=== PATIENT | female | born 1980 | race Caucasian/White ===

== ENCOUNTER 2016-10-06 21:06 | Emergency (ER) | payer OTHER ==
[~2016-10-06] VITALS: Ht 160 cm; Wt 78.0 kg
[~2016-10-06 21:06] MED LIST: AMOX1TAB61 PO; FAMO-63 PO; ONDA4TAB10 SL; ONDA4TAB7 PO; ONDA8TAB9 PO; OXYC-323 PO; TRAM50TA PO
[2016-10-06 21:13] VITALS: BP 125/86
[2016-10-06] MEDS ORDERED: CLIN150C14 PO (21:40)
--- NOTE | 2016-10-06 21:40 | PHYS DOC ---
Past Medical History Past Medical History: No Pertinent History Additional Past Medical Histor: OVARIAN CYST Past Surgical History: Cholecystectomy, Tonsillectomy, Tubal ligation Additional Past Surgical Histo: D&C Alcohol Use: None Drug Use: None Adult General Chief Complaint Chief Complaint: INSECT BITE [facility] HPI Patient is a 36 year old female presents to the emergency department stating that she was outside at work. When she felt something bite in the leg. Patient states that she did not think much about that at this time. She states when she went home the area. Be slightly red. Today when she woke up the area appear to be a pustular type area with redness noted around it. She states that there is clear drainage coming from the site. She states that the area has a burning type itching sensation. She denies taking anything for pain and discomfort. She has not provided any pain relief. Patient denies any numbness or tingling down to the lower extremity. She denies any fever, chills or any nausea vomiting. Patient does state as the day has progressed the redness has also progressed. The area that appears to have progressed size of a softball. Patient states that her last tetanus immunization was approximately 2 years ago. Review of Systems Review of Systems Constitutional: Denies fever or chills [] Eyes: Denies change in visual acuity, redness, or eye pain [] HENT: Denies nasal congestion or sore throat [] Respiratory: Denies cough or shortness of breath [] Cardiovascular: No additional information not addressed in HPI [] GI: Denies abdominal pain, nausea, vomiting, bloody stools or diarrhea [] : Denies dysuria or hematuria [] Musculoskeletal: Denies back pain or joint pain [] Integument: Denies rash or skin lesions. Redness with a bite in the middle. Neurologic: Denies headache, focal weakness or sensory changes [] Endocrine: Denies polyuria or polydipsia [] Allergies Allergies Allergies Coded Allergies Type Severity Reaction Last Updated Verified Sulfa (Sulfonamide Antibiotics) Allergy Severe THROAT SWELLS SHUT 10/17/15 Yes fentanyl Allergy Intermediate anxiuos 10/17/15 Yes prochlorperazine Allergy Intermediate 10/27/15 Yes prochlorperazine edisylate Allergy Intermediate 10/17/15 Yes shellfish derived Allergy Intermediate 04/30/14 Yes hydromorphone Adverse Reaction Intermediate Nausea and Vomiting 10/23/15 Yes morphine Adverse Reaction Intermediate Nausea 10/23/15 Yes Physical Exam Physical Exam Constitutional: Well developed, well nourished, no acute distress, non-toxic appearance. [] HENT: Normocephalic, atraumatic, bilateral external ears normal, oropharynx moist, no oral exudates, nose normal. [] Eyes: PERRLA, EOMI, conjunctiva normal, no discharge. [] Neck: Normal range of motion, no tenderness, supple, no stridor. [] Cardiovascular:Heart rate regular rhythm, no murmur [] Lungs & Thorax: Bilateral breath sounds clear to auscultation [] Skin: Warm, dry, no erythema, no rash. Patient with a softball sized area that is red warm and tender to touch with the center part with no induration noted the area appears to be very hard. No drainage or discharge noted from the site. Peripheral pulses 2+ cap refill brisk less than 2 seconds. Back: No tenderness Extremities: No tenderness, no cyanosis, no clubbing, ROM intact, no edema. [] Neurologic: Alert and oriented X 3, normal motor function, normal sensory function, no focal deficits noted. [] Psychologic: Affect normal, judgement normal, mood normal. [] Current Patient Data Vital Signs Vital Signs Date Time Temp Pulse Resp B/P (MAP) Pulse Ox O2 Delivery O2 Flow Rate FiO2 10/06/16 21:13 98.4 97 18 125/86 (99) 99 Room Air 98.4 EKG EKG [] Radiology/Procedures Radiology/Procedures [] Course & Med Decision Making Course & Med Decision Making Pertinent Labs and Imaging studies reviewed. (See chart for details) Patient was recommended Benadryl to help with the burning and irritation sensation. Patient will also be placed on clindamycin for cellulitis. Patient was recommended to keep the area clean and dry and cool. Patient was also recommended to use warm packs over the center part of the hardened area. Patient was also recommended to follow-up with her primary care physician in the next 3-5 days. She is provided with signs and symptoms to return back to emergency department. Patient agrees with discharge instructions, treatment regimens and follow-up recommendations. [] Dragon Disclaimer Dragon Disclaimer This electronic medical record was generated, in whole or in part, using a voice recognition dictation system. Departure Departure Impression: Primary Impression: Abscess or cellulitis of thigh Disposition: 01 HOME, SELF-CARE Condition: STABLE Referrals: MITRA RONQUILLO MD (PCP) Patient Instructions: Cellulitis, [id number] Additional Instructions: Activity as tolerated. Tylenol or ibuprofen for pain and discomfort. Benadryl 25 mg as needed for burning itching or irritation. This medication will cause drowsiness do not take any be alert and oriented. Clean the site with soap and water and apply antibiotic ointment several times a day. Warm moist packs to the area approximately 5-6 times a day for 20 minutes at a time. Medications as prescribed. Follow-up to primary care physician in the next 3-5 days. Return back to emergency department for signs and symptoms of become worse. Scripts Clindamycin Hcl (CLINDAMYCIN HCL) 150 Mg Capsule 3 CAP PO TID for 10 Days, CAP Prov: HAILE AUSTIN APRN 10/06/16 HAILE AUSTIN APRN Oct 06, 2016 21:40
== END 2016-10-06 21:46 | disposition home or self-care (01) ==
LOC: ER 21:06
DX: L02.416 Cutaneous abscess of left lower limb (principal); Z90.49 Acquired absence of other specified parts of digestive tract; Z98.51 Tubal ligation status; Z88.2 Allergy status to sulfonamides; Z88.5 Allergy status to narcotic agent; Z88.8 Allergy status to other drugs, medicaments and biological substances; Z91.013 Allergy to seafood
CPT/HCPCS: 99283

== ENCOUNTER 2016-11-14 21:35 | Emergency (ER) | payer OTHER ==
[~2016-11-14] VITALS: Ht 160 cm; Wt 77.1 kg
[~2016-11-14 21:35] MED LIST changes: +CLIN150C14 PO
[2016-11-14] MEDS ORDERED: SUCRALFATE 1 GM TABLET. PO ONE (22:00)
[2016-11-14] MEDS ORDERED: LIDO:MAALOX:DONNATAL 1:1:1 15 ML SINGLE DOSE SWSW ONE (22:00)
--- NOTE | 2016-11-14 22:07 | PHYS DOC ---
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 Patient came in today because today she has some stools to look very dark and the would carry in greasy. Patient has had gallbladder removed but that was about a year ago. Patient denies any recent trauma or recent illnesses. Patient is concerned about a possible ulcer she has not been able in for that yet. Review of Systems Review of Systems Constitutional: Denies fever or chills [] HENT: Denies sore throat [] Respiratory: Denies cough or shortness of breath [] Cardiovascular: No chest pain GI: yes to epigastric burning and nausea.No vomiting, bloody stools or diarrhea. yes to dark tarry stools times one day. : Denies dysuria or hematuria [] Musculoskeletal: Denies back pain or joint pain [] Integument: Denies rash or skin lesions [] Neurologic: Denies headache, focal weakness or sensory changes [] All other systems checked and found to be negative unless otherwise stated Current Medications Current Medications Current Medications Medications (Trade) Dose Ordered Sig/Reena Start Time Stop Time Status Last Admin Dose Admin Multi-Ingredient Mouthwash/Gargle (Gi Cocktail Single Dose) 15 ml 1X ONCE 11/14/16 22:00 11/14/16 22:01 DC 11/14/16 22:09 15 ML Ondansetron HCl (Zofran) 4 mg 1X ONCE 11/14/16 22:15 11/14/16 22:16 DC 11/14/16 22:10 4 MG Sucralfate (Carafate) 1 gm 1X ONCE 11/14/16 22:00 11/14/16 22:01 DC 11/14/16 22:09 1 GM Allergies Allergies Allergies Coded Allergies Type Severity Reaction Last Updated Verified Sulfa (Sulfonamide Antibiotics) Allergy Severe THROAT SWELLS SHUT 10/17/15 Yes fentanyl Allergy Intermediate anxiuos 10/17/15 Yes prochlorperazine Allergy Intermediate 10/27/15 Yes prochlorperazine edisylate Allergy Intermediate 10/17/15 Yes shellfish derived Allergy Intermediate 04/30/14 Yes hydromorphone Adverse Reaction Intermediate Nausea and Vomiting 10/23/15 Yes morphine Adverse Reaction Intermediate Nausea 10/23/15 Yes Physical Exam Physical Exam Constitutional: Well developed, well nourished, no acute distress, non-toxic appearance. [] HENT: Normocephalic, atraumatic, , nose normal. [] Eyes: EOMI, conjunctiva normal, no discharge. [] Neck: Normal range of motion, trachea midline [] Cardiovascular:Heart rate regular rhythm, no murmur, equal pulses, normal perfusion Lungs & Thorax: Bilateral breath sounds clear to auscultation, no tachypnea Abdomen: Bowel sounds normal, soft, very mild tenderness to palpation in the epigastric area without guarding or rebound, no masses, no pulsatile masses. [] Skin: Warm, dry, no erythema, no rash. [] : Rectal exam normal external, normal tone, brown stool. Sample sent to lab for Hemoccult analysis, brown stool no evidence of melena or blood. Extremities: No tenderness, no cyanosis, no clubbing, ROM intact, no edema. [] Neurologic: Alert and oriented X 3, normal motor function, no focal deficits noted. [] Psychologic: Affect normal, judgement normal, mood normal. [] Current Patient Data Vital Signs Vital Signs Date Time Temp Pulse Resp B/P (MAP) Pulse Ox O2 Delivery O2 Flow Rate FiO2 11/14/16 22:36 68 15 124/66 (85) 97 Room Air 11/14/16 21:45 98.3 98.3 Lab Values Laboratory Tests Test 11/14/16 20:52 11/14/16 21:50 11/14/16 21:55 POC Urine HCG, Qualitative Hcg negative (Negative) White Blood Count 7.4 x10^3/uL (4.0-11.0) Red Blood Count 4.81 x10^6/uL (3.50-5.40) Hemoglobin 15.0 g/dL (12.0-15.5) Hematocrit 44.4 % (36.0-47.0) Mean Corpuscular Volume 92 fL (79-100) Mean Corpuscular Hemoglobin 31 pg (25-35) Mean Corpuscular Hemoglobin Concent 34 g/dL (31-37) Red Cell Distribution Width 14.0 % (11.5-14.5) Platelet Count 374 x10^3/uL (140-400) Neutrophils (%) (Auto) 62 % (31-73) Lymphocytes (%) (Auto) 28 % (24-48) Monocytes (%) (Auto) 7 % (0-9) Eosinophils (%) (Auto) 2 % (0-3) Basophils (%) (Auto) 1 % (0-3) Neutrophils # (Auto) 4.6 x10^3uL (1.8-7.7) Lymphocytes # (Auto) 2.0 x10^3/uL (1.0-4.8) Monocytes # (Auto) 0.5 x10^3/uL (0.0-1.1) Eosinophils # (Auto) 0.1 x10^3/uL (0.0-0.7) Basophils # (Auto) 0.1 x10^3/uL (0.0-0.2) Sodium Level 143 mmol/L (136-145) Potassium Level 3.4 mmol/L (3.5-5.1) L Chloride Level 103 mmol/L (98-107) Carbon Dioxide Level 32 mmol/L (21-32) Anion Gap 8 (6-14) Blood Urea Nitrogen 14 mg/dL (7-20) Creatinine 0.8 mg/dL (0.6-1.0) Estimated GFR (Cockcroft-Gault) 81.6 BUN/Creatinine Ratio 18 (6-20) Glucose Level 99 mg/dL (70-99) Calcium Level 9.7 mg/dL (8.5-10.1) Total Bilirubin 0.3 mg/dL (0.2-1.0) Aspartate Amino Transferase (AST) 15 U/L (15-37) Alanine Aminotransferase (ALT) 23 U/L (14-59) Alkaline Phosphatase 86 U/L (46-116) Total Protein 8.4 g/dL (6.4-8.2) H Albumin 4.2 g/dL (3.4-5.0) Albumin/Globulin Ratio 1.0 (1.0-1.7) Stool Occult Blood Negative (NEG) Laboratory Tests 11/14/16 21:50 Laboratory Tests 11/14/16 21:50 EKG EKG [] Radiology/Procedures Radiology/Procedures [] Course & Med Decision Making Course & Med Decision Making Pertinent Labs and Imaging studies reviewed. (See chart for details) and discussed with the patient and her family member. Patient re evaluated and found To Be in No Distress with Vital Signs Being Unremarkable. Plan for follow- up with PCP and possible referral to GI has been discussed and patient agrees to follow up as directed. Of note, the patient states that she had improvement of her burning sensation with the medication given in the ED [] Dragon Disclaimer Dragon Disclaimer This electronic medical record was generated, in whole or in part, using a voice recognition dictation system. Departure Departure Impression: Primary Impression: Stool color abnormal Additional Impression: Stomach discomfort Disposition: HOME, SELF-CARE Condition: IMPROVED Referrals: MITRA RONQUILLO MD (PCP) Patient Instructions: Stool Examination Additional Instructions: Please follow-up with your doctor in 2-4 days for reexamination and referral to GI Scripts Famotidine (PEPCID) 20 Mg Tablet 20 MG PO BID for 5 Days, #10 TAB Prov: Akil CROWELL MD 11/14/16 Sucralfate (CARAFATE) 1 Gm/10 Ml Oral.susp 10 ML PO BID, #120 ML 1 Refill Prov: Akil CROWELL MD 11/14/16 Problem Qualifiers Akil CROWELL MD Nov 14, 2016 22:07
[2016-11-14 22:10] LABS: BASO # 0.1 x10^3/uL (0.0-0.2); BASO % 1 % (0-3); EOS % 2 % (0-3); HEMATOCRIT 44.4 % (36.0-47.0); LYMPH % 28 % (24-48); MEAN CORPUSCULAR HEMOGLOBIN 31 pg (25-35); MEAN CORPUSCULAR HGB CONC 34 g/dL (31-37); MEAN CORPUSCULAR VOLUME 92 fL (79-100); MONO % 7 % (0-9); NEUT % 62 % (31-73); PLATELET COUNT 374 x10^3/uL (140-400); RED BLOOD COUNT 4.81 x10^6/uL (3.50-5.40); WHITE BLOOD COUNT 7.4 x10^3/uL (4.0-11.0)
[2016-11-14 22:14] LABS: NEG OBC FOB NEG
[2016-11-14 22:15] LABS: POS OBC FOB POS
[2016-11-14] MEDS ORDERED: ONDANSETRON PF 4 MG/2 ML VIAL. IV ONE (22:15)
[2016-11-14 22:21] LABS: CALCIUM 9.7 mg/dL (8.5-10.1); CREATININE 0.8 mg/dL (0.6-1.0); GFR 81.6; POTASSIUM 3.4 mmol/L (3.5-5.1)
[2016-11-14 22:27] LABS: ALBUMIN 4.2 g/dL (3.4-5.0); TOTAL BILIRUBIN 0.3 mg/dL (0.2-1.0); TOTAL PROTEIN 8.4 g/dL (6.4-8.2)
[2016-11-14 22:36] VITALS: BP 124/66
[2016-11-14] MEDS ORDERED: SUCR1ORA5 PO (22:45)
[2016-11-14] MEDS ORDERED: FAMO-63 PO (22:45)
== END 2016-11-14 22:52 | disposition home or self-care (01) ==
LOC: ER 21:35
DX: R19.5 Other fecal abnormalities (principal); K92.1 Melena; K31.89 Other diseases of stomach and duodenum; Z90.49 Acquired absence of other specified parts of digestive tract; Z98.51 Tubal ligation status; Z88.2 Allergy status to sulfonamides; Z88.8 Allergy status to other drugs, medicaments and biological substances; Z88.6 Allergy status to analgesic agent; Z88.4 Allergy status to anesthetic agent; Z88.5 Allergy status to narcotic agent; Z91.013 Allergy to seafood
CPT/HCPCS: 36415; 80053; 81025; 82274; 85027; 96374; 99284; J2405

== ENCOUNTER → 2017-06-08 | Outpatient (CLI) | payer OTHER | END | disposition home or self-care (01) | LOC: KCIC MAMMO 09:22 | DX: N63.20 Unspecified lump in the left breast, unspecified quadrant (principal); N64.4 Mastodynia; Z80.3 Family history of malignant neoplasm of breast | CPT/HCPCS: 76641; 77066 ==

== ENCOUNTER 2017-06-29 21:24 | Emergency (ER) | payer MEDICARE, OTHER ==
[2017-06-30 00:26] LABS: ADD MAN DIFF? NO
[2017-06-30 00:28] LABS: URINE HCG POC HCG NEGATIVE (Negative)
[2017-06-30 00:29] LABS: BASO # 0.1 x10^3/uL (0.0-0.2); BASO % 1 % (0-3); EOS # 0.2 x10^3/uL (0.0-0.7); EOS % 3 % (0-3); HEMATOCRIT 38.5 % (36.0-47.0); HEMOGLOBIN 13.1 g/dL (12.0-15.5); LYMPH # 2.2 x10^3/uL (1.0-4.8); LYMPH % 27 % (24-48); MEAN CORPUSCULAR HEMOGLOBIN 31 pg (25-35); MEAN CORPUSCULAR HGB CONC 34 g/dL (31-37); MEAN CORPUSCULAR VOLUME 92 fL (79-100); MONO # 0.7 x10^3/uL (0.0-1.1); MONO % 8 % (0-9); NEUT # 5.1 x10^3uL (1.8-7.7); NEUT % 62 % (31-73); PLATELET COUNT 329 x10^3/uL (140-400); RED BLOOD COUNT 4.19 x10^6/uL (3.50-5.40); RED CELL DISTRIBUTION WIDTH 13.7 % (11.5-14.5); WHITE BLOOD COUNT 8.3 x10^3/uL (4.0-11.0)
[2017-06-30 00:32] LABS: BILIRUBIN,URINE NEGATIVE (NEG); CLARITY,URINE CLEAR; COLOR,URINE YELLOW; GLUCOSE,URINE NEGATIVE (NEG); NITRITE,URINE NEGATIVE (NEG); PH,URINE 5.5; PROTEIN,URINE NEGATIVE (NEG-TRACE); UROBILINOGEN,URINE 0.2 mg/dL (0.2 mg/dL)
[2017-06-30 00:37] LABS: ANION GAP 7 (6-14); BARBITURATES NEG (NEG); BENZODIAZEPINES NEG (NEG); BLOOD UREA NITROGEN 16 mg/dL (7-20); BUN/CREATININE RATIO 27 (6-20); CALCIUM 9.9 mg/dL (8.5-10.1); CANNABINOIDS NEG (NEG); CARBON DIOXIDE 30 mmol/L (21-32); CHLORIDE 102 mmol/L (98-107); COCAINE NEG (NEG); CREATININE 0.6 mg/dL (0.6-1.0); GFR 113.8; GLUCOSE 101 mg/dL (70-99); METHADONE NEG (NEG); OPIATES NEG (NEG); PHENCYCLIDINE NEG (NEG); POTASSIUM 3.5 mmol/L (3.5-5.1); SODIUM 139 mmol/L (136-145)
[2017-06-30 00:38] LABS: AMPHETAMINE/METHAMPHETAMINE NEG (NEG); ETHANOL, URINE NEG (NEG)
[2017-06-30 00:43] LABS: ALBUMIN 4.1 g/dL (3.4-5.0); ALBUMIN/GLOBULIN RATIO 1.1 (1.0-1.7); ALK PHOS 88 U/L (46-116); ALT (SGPT) 22 U/L (14-59); AST (SGOT) 14 U/L (15-37); BACTERIA,URINE MOD /HPF (0-FEW); RBC,URINE 0 /HPF (0-2); SQUAMOUS EPITHELIAL CELL,UR MOD /LPF; TOTAL BILIRUBIN 0.2 mg/dL (0.2-1.0)
[2017-06-30 00:50] LABS: TROPONINI < 0.017 ng/mL (0.000-0.055)
== END 2017-06-30 01:16 | disposition home or self-care (01) ==
LOC: ER 21:24
DX: R07.89 Other chest pain (principal); M54.6 Pain in thoracic spine; N39.0 Urinary tract infection, site not specified; Z88.2 Allergy status to sulfonamides; Z88.5 Allergy status to narcotic agent; Z90.49 Acquired absence of other specified parts of digestive tract; Z98.51 Tubal ligation status; Z88.4 Allergy status to anesthetic agent; Z88.8 Allergy status to other drugs, medicaments and biological substances; Z91.013 Allergy to seafood
CPT/HCPCS: 36415; 71045; 80053; 80307; 81001; 81025; 84484; 85025; 93005; 99285-25

== ENCOUNTER 2018-02-01 19:15 | Emergency (ER) | payer MEDICARE ==
[~2018-02-01] VITALS: Ht 160 cm; Wt 72.6 kg
[~2018-02-01 19:15] MED LIST changes: +CEPH500T PO; +SUCR1ORA5 PO
[2018-02-01 21:11] LABS: BILIRUBIN,URINE NEGATIVE (NEG); CLARITY,URINE CLEAR; COLOR,URINE YELLOW; NITRITE,URINE NEGATIVE (NEG); PH,URINE 6.5; PROTEIN,URINE NEGATIVE (NEG-TRACE); UROBILINOGEN,URINE 0.2 mg/dL (0.2 mg/dL)
[2018-02-01] MEDS ORDERED: IBUPROFEN 600 MG TABLET. PO ONE (21:15)
[2018-02-01 21:25] LABS: BASO # 0.1 x10^3/uL (0.0-0.2); BASO % 1 % (0-3); EOS # 0.2 x10^3/uL (0.0-0.7); EOS % 3 % (0-3); HEMATOCRIT 37.7 % (36.0-47.0); HEMOGLOBIN 12.8 g/dL (12.0-15.5); LYMPH % 28 % (24-48); MEAN CORPUSCULAR HEMOGLOBIN 31 pg (25-35); MEAN CORPUSCULAR HGB CONC 34 g/dL (31-37); MEAN CORPUSCULAR VOLUME 92 fL (79-100); MONO # 0.5 x10^3/uL (0.0-1.1); MONO % 7 % (0-9); NEUT # 4.5 x10^3uL (1.8-7.7); NEUT % 61 % (31-73); PLATELET COUNT 330 x10^3/uL (140-400); RED CELL DISTRIBUTION WIDTH 13.8 % (11.5-14.5); WHITE BLOOD COUNT 7.3 x10^3/uL (4.0-11.0)
[2018-02-01 21:32] LABS: CALCIUM 9.3 mg/dL (8.5-10.1); CREATININE 0.7 mg/dL (0.6-1.0); GFR 94.7; POTASSIUM 4.1 mmol/L (3.5-5.1)
[2018-02-01 21:32] LABS: U PREG PATIENT NEGATIVE (NEG)
[2018-02-01 21:35] LABS: BACTERIA,URINE 0 /HPF (0-FEW); RBC,URINE 0 /HPF (0-2); SQUAMOUS EPITHELIAL CELL,UR FEW /LPF; WBC,URINE OCC /HPF (0-4)
[2018-02-01 21:40] LABS: ALBUMIN 3.9 g/dL (3.4-5.0); ALBUMIN/GLOBULIN RATIO 1.2 (1.0-1.7); MAGNESIUM 2.1 mg/dL (1.8-2.4); TOTAL BILIRUBIN 0.2 mg/dL (0.2-1.0); TOTAL PROTEIN 7.1 g/dL (6.4-8.2)
[2018-02-01 21:44] VITALS: BP 126/72
--- NOTE | 2018-02-01 21:49 | PHYS DOC ---
Past Medical History Past Medical History: Other Additional Past Medical Histor: OVARIAN CYST, sports-induced asthma Past Surgical History: Cholecystectomy, Tonsillectomy, Tubal ligation Additional Past Surgical Histo: D&C Smoking: Less than 1pk/day Alcohol Use: Occasionally Drug Use: None Adult General Chief Complaint Chief Complaint: UPPER EXTREMITY PAIN HPI HPI 37-year-old female presents to ER with complaints of left shoulder pain which radiates into upper back and left upper chest which has been ongoing for several days. Patient reports she's had some radiation down her left arm with numbness and tingling in her fingers. Patient denies any injury, recent falls, swelling, skin discoloration, or decreased range of motion in left upper extremity. Patient denies any shortness of air. Patient reports she has increased pain in her left upper chest with deep breath denying any cough or fever/chills. Patient reports she has had intermittent irregular heartbeat which has been ongoing "for a while". 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 Patient reports her heart irregularity seems to increase around the time her and stressed cycle is supposed to start. Patient reports she just finished her LMP in past couple of days. Patient reports she took 4 Advil this morning at 10 AM and did have improvement in symptoms. Patient denies inability to emergency services professional items with left hand. 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 She denies any recent travel, hormonal therapy, or previous history of clots. Patient smokes half pack per day cigarettes and is a social drinker denying any illicit drugs. Review of Systems Review of Systems Constitutional: Denies fever or chills [] Eyes: Denies change in visual acuity, redness, or eye pain [] HENT: Denies nasal congestion or sore throat [] Respiratory: Denies cough or shortness of breath [] Cardiovascular: No additional information not addressed in HPI [] GI: Denies abdominal pain, nausea, vomiting, bloody stools or diarrhea [] : Denies dysuria or hematuria [] Musculoskeletal: Denies back pain or joint pain [] Integument: Denies rash or skin lesions [] Neurologic: Denies headache, focal weakness or sensory changes [] Endocrine: Denies polyuria or polydipsia [] All other systems were reviewed and found to be within normal limits, except as documented in this note. Current Medications Current Medications Current Medications Medications (Trade) Dose Ordered Sig/Reena Start Time Stop Time Status Last Admin Dose Admin Ibuprofen (Motrin) 600 mg 1X ONCE 02/01/18 21:15 02/01/18 21:16 DC 02/01/18 21:26 600 MG Allergies Allergies Allergies Coded Allergies Type Severity Reaction Last Updated Verified Sulfa (Sulfonamide Antibiotics) Allergy Severe THROAT SWELLS SHUT 10/17/15 Yes fentanyl Allergy Intermediate anxiuos 10/17/15 Yes prochlorperazine Allergy Intermediate 10/27/15 Yes prochlorperazine edisylate Allergy Intermediate 10/17/15 Yes shellfish derived Allergy Intermediate 04/30/14 Yes hydromorphone Adverse Reaction Intermediate Nausea and Vomiting 10/23/15 Yes morphine Adverse Reaction Intermediate Nausea 10/23/15 Yes Physical Exam Physical Exam Constitutional: Well developed, well nourished, no acute distress, non-toxic appearance. [] HENT: Normocephalic, atraumatic, oropharynx moist, no oral exudates, nose normal. [] Eyes: pupils equal, conjunctiva normal, no discharge. [] Neck: Normal range of motion, no tenderness- no midline cervical tenderness or palp. deformity, supple, no gross adenopathy. No stiffness/rigidity. Cardiovascular:Heart rate regular rhythm, no murmur [] Lungs & Thorax: Bilateral breath sounds clear to auscultation. Resp. equal/ nonlabored. Tender to palp. lt upper chest- reproducible on palp. tenderness extends into lt anterior shoulder/lt upper back- no palp. deformity/skin discoloration/crepitus or swelling Abdomen: Bowel sounds normal, soft/nondistended, no tenderness, no masses, no pulsatile masses. [] Skin: Warm, dry, no erythema, no rash. [] Back: Tender upper lt side back above scapula- no midline spinal tenderness or palp. deformity, no CVA tenderness. [] Extremities: Tender lt anterior shoulder- no deformity full ROM, cap refill brisk all fingers. No cyanosis, no clubbing, ROM intact all extremities, no edema. [] Neurologic: Alert and oriented X 3, normal motor function, normal sensory function, no focal deficits noted. [] Psychologic: Affect normal, judgement normal, mood normal. [] Current Patient Data Vital Signs Vital Signs Date Time Temp Pulse Resp B/P (MAP) Pulse Ox O2 Delivery O2 Flow Rate FiO2 02/01/18 20:32 97.9 68 16 126/87 (100) 98 Room Air 97.9 Lab Values Laboratory Tests Test 02/01/18 20:23 02/01/18 20:36 02/01/18 21:15 Urine Collection Type Void Urine Color Yellow Urine Clarity Clear Urine pH 6.5 Urine Specific [place] 1.015 Urine Protein Negative mg/dL (NEG-TRACE) Urine Glucose (UA) Negative mg/dL (NEG) Urine Ketones (Stick) Negative mg/dL (NEG) Urine Blood Negative (NEG) Urine Nitrite Negative (NEG) Urine Bilirubin Negative (NEG) Urine Urobilinogen Dipstick 0.2 mg/dL (0.2 mg/dL) Urine Leukocyte Esterase Negative (NEG) Urine RBC 0 /HPF (0-2) Urine WBC Occ /HPF (0-4) Urine Squamous Epithelial Cells Few /LPF Urine Bacteria 0 /HPF (0-FEW) Urine Mucus Slight /LPF Urine Test Negative (NEG) POC Urine HCG, Qualitative Hcg negative (Negative) White Blood Count 7.3 x10^3/uL (4.0-11.0) Red Blood Count 4.10 x10^6/uL (3.50-5.40) Hemoglobin 12.8 g/dL (12.0-15.5) Hematocrit 37.7 % (36.0-47.0) Mean Corpuscular Volume 92 fL (79-100) Mean Corpuscular Hemoglobin 31 pg (25-35) Mean Corpuscular Hemoglobin Concent 34 g/dL (31-37) Red Cell Distribution Width 13.8 % (11.5-14.5) Platelet Count 330 x10^3/uL (140-400) Neutrophils (%) (Auto) 61 % (31-73) Lymphocytes (%) (Auto) 28 % (24-48) Monocytes (%) (Auto) 7 % (0-9) Eosinophils (%) (Auto) 3 % (0-3) Basophils (%) (Auto) 1 % (0-3) Neutrophils # (Auto) 4.5 x10^3uL (1.8-7.7) Lymphocytes # (Auto) 2.0 x10^3/uL (1.0-4.8) Monocytes # (Auto) 0.5 x10^3/uL (0.0-1.1) Eosinophils # (Auto) 0.2 x10^3/uL (0.0-0.7) Basophils # (Auto) 0.1 x10^3/uL (0.0-0.2) Sodium Level 141 mmol/L (136-145) Potassium Level 4.1 mmol/L (3.5-5.1) Chloride Level 104 mmol/L (98-107) Carbon Dioxide Level 29 mmol/L (21-32) Anion Gap 8 (6-14) Blood Urea Nitrogen 15 mg/dL (7-20) Creatinine 0.7 mg/dL (0.6-1.0) Estimated GFR (Cockcroft-Gault) 94.7 BUN/Creatinine Ratio 21 (6-20) H Glucose Level 96 mg/dL (70-99) Calcium Level 9.3 mg/dL (8.5-10.1) Magnesium Level 2.1 mg/dL (1.8-2.4) Total Bilirubin 0.2 mg/dL (0.2-1.0) Aspartate Amino Transferase (AST) 12 U/L (15-37) L Alanine Aminotransferase (ALT) 21 U/L (14-59) Alkaline Phosphatase 73 U/L (46-116) Troponin I Quantitative < 0.017 ng/mL (0.000-0.055) Total Protein 7.1 g/dL (6.4-8.2) Albumin 3.9 g/dL (3.4-5.0) Albumin/Globulin Ratio 1.2 (1.0-1.7) Laboratory Tests 02/01/18 21:15 Laboratory Tests 02/01/18 21:15 EKG EKG [] Radiology/Procedures Radiology/Procedures [] Course & Med Decision Making Course & Med Decision Making Pertinent Labs and Imaging studies reviewed. (See chart for details) 2150: Discussed test results with patient with EKG showing no acute ST elevation or STEMI and troponin negative. Patient reports following ibuprofen dose her symptoms have improved. At this time she is denying any chest pain or shortness of air. Patient has occasional PVC on monitor and so discussed follow- up with cardiology for further evaluation and care. Will provide referral information on discharge paperwork. Patient at this time denies any numbness or tingling in her left upper extremity reporting following ibuprofen this symptoms subsided. Discussed chest x-ray with no acute findings. Discussed probable pleurisy as patient was having pain with deep breath and is a daily smoker. Smoking cessation was discussed. Discussed [id number] ibuprofen and/or Tylenol as needed for pain as directed on container. Educated on signs and symptoms to return to ER for. Discharge instructions were discussed. Dragon Disclaimer Dragon Disclaimer This electronic medical record was generated, in whole or in part, using a voice recognition dictation system. Departure Departure Impression: Primary Impression: Pleurisy Additional Impression: Arm pain Disposition: 01 HOME, SELF-CARE Condition: STABLE Referrals: MITRA RONQUILLO MD (PCP) Patient Instructions: Musculoskeletal Pain, Pleurisy Additional Instructions: As discussed [id number] Tylenol and/or ibuprofen as directed on container as needed for pain. Avoid smoking. Drink plenty of water. Follow-up with cardiology for further evaluation- call to schedule appointment. Problem Qualifiers ISABEL ELIZABETH APRN Feb 01, 2018 21:49
--- NOTE | 2018-02-01 22:05 | RAD ---
PA and lateral chest radiograph. History: Left upper chest and shoulder pain. Comparison: June 29, 2013. Findings: Cardiomediastinal silhouette is within normal limits for size. Bilateral lung [place] appear clear without evidence of infiltrate, effusion, or pneumothorax. Impression: 1. No acute cardiopulmonary process. Electronically signed by: Christian Peacock MD (02/01/2018 10:02 PM) [facility]
--- NOTE | 2018-02-02 02:17 | EKG ---
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
== END 2018-02-01 22:16 | disposition home or self-care (01) ==
LOC: ER 19:15
DX: R09.1 Pleurisy (principal); M25.512 Pain in left shoulder; M54.6 Pain in thoracic spine; R07.1 Chest pain on breathing; J45.909 Unspecified asthma, uncomplicated; F17.200 Nicotine dependence, unspecified, uncomplicated; Z98.51 Tubal ligation status; Z90.49 Acquired absence of other specified parts of digestive tract; Z82.2 Family history of deafness and hearing loss; Z88.4 Allergy status to anesthetic agent; Z88.5 Allergy status to narcotic agent; Z88.8 Allergy status to other drugs, medicaments and biological substances; Z91.013 Allergy to seafood
CPT/HCPCS: 36415; 71046; 80053; 81001; 81025; 83735; 84484; 85025; 93005; 99285